=== PATIENT | female | born 2000 | race Caucasian/White ===

== ENCOUNTER 2019-01-11 06:32 | Emergency (ER) | payer BC | END 2019-01-11 07:44 | disposition home or self-care (01) | LOC: ERS 06:32 | DX: J02.9 Acute pharyngitis, unspecified (principal); F41.9 Anxiety disorder, unspecified | CPT/HCPCS: 87081; 87430; 99283 ==

== ENCOUNTER 2019-01-29 20:28 | Emergency (ER) | payer BC | END 2019-01-29 23:58 | disposition home or self-care (01) | LOC: ERS 20:28 | DX: L30.9 Dermatitis, unspecified (principal); F41.9 Anxiety disorder, unspecified | CPT/HCPCS: 99282 ==